=== PATIENT | male | born 1995 | race African-American/Black ===

== ENCOUNTER 2021-10-07 10:19 | Emergency (ER) | payer OTHER ==
[~2021-10-07] VITALS: Ht 190.5 cm; Wt 113.4 kg
[2021-10-07] MEDS ORDERED: LORAZEPAM INJ 2 MG/ML VIAL IV ONE (11:00)
[2021-10-07] MEDS ORDERED: HALOPERIDOL LACTATE INJ 5 MG/ML VIAL IV ONE (11:00)
[2021-10-07] MEDS ORDERED: diphenhydrAMINE HCL 50 MG/ML VIAL IV ONE (11:00)
[2021-10-07] MEDS ORDERED: HALOPERIDOL LACTATE INJ 5 MG/ML VIAL IM ONE (11:00)
[2021-10-07] MEDS ORDERED: IV NS 0.9% 1,000 ML IV ONE (11:00)
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
[2021-10-07] MEDS ORDERED: HALOPERIDOL LACTATE INJ 5 MG/ML VIAL ONE (11:09)
[2021-10-07] MEDS ORDERED: diphenhydrAMINE HCL 50 MG/ML VIAL ONE (11:09)
[2021-10-07] MEDS ORDERED: LORAZEPAM INJ 2 MG/ML VIAL ONE ×2 (11:10→15:15)
--- NOTE | 2021-10-07 11:45 | NUR ---
PT REFUSING BLOOD DRAW, ACTIVELY PSYCHOTIC. ON 5150 HOLD. MEDICATED ORDERED. SEE EMAR.
--- NOTE | 2021-10-07 11:59 | NUR ---
BLOOD DRAWN AND SENT TO LAB
[2021-10-07] MEDS ORDERED: LORAZEPAM INJ 2 MG/ML VIAL IM ONE (12:00)
[2021-10-07] MEDS ORDERED: diphenhydrAMINE HCL 50 MG/ML VIAL IM ONE (12:00)
--- NOTE | 2021-10-07 12:11 | NUR ---
SWAB FOR COVID19 SENT TO LAB
--- NOTE | 2021-10-07 12:11 | NUR ---
PATIENT INTENTIONALLY PULLED OUT HIS IV CANULA
[2021-10-07 12:12] LABS: BASOPHILS % (AUTO) 0.2 % (0.0-2.0); EOSINOPHILS % (AUTO) 0.8 % (0.0-6.0); HEMATOCRIT 52 % (39-51); HEMOGLOBIN 17.4 g/dL (13.5-17.5); LYMPHOCYTES # (AUTO) 1.1 K/uL (0.8-4.8); LYMPHOCYTES % (AUTO) 8.9 % (20.0-44.0); MEAN CORPUSCULAR HGB CONC 34 g/dl (31.0-36.0); MEAN CORPUSCULAR VOLUME 87 fL (80-96); MONOCYTES # (AUTO) 0.9 K/uL (0.1-1.30); MONOCYTES % (AUTO) 7.2 % (2.0-12.0); NEUTROPHILS # (AUTO) 10.6 K/uL (1.8-8.9); NEUTROPHILS % (AUTO) 82.9 % (43.0-81.0); PLATELET COUNT (AUTO) 194 K/uL (150-450); RED BLOOD CELL COUNT(AUTO) 5.99 MIL/uL (4.5-6.0); WHITE BLOOD COUNT (AUTO) 12.8 K/uL (4.3-11.0)
[2021-10-07 12:42] LABS: ALANINE AMINOTRANSFERASE 51 U/L (12-78); ALCOHOL, BLOOD < 3 mg/dL (0-0); ALKALINE PHOSPHATASE 96 U/L (46-116); ASPARTATE AMINOTRANSFERASE 29 U/L (15-37); BILIRUBIN,DIRECT 0.1 mg/dL (0.0-0.2); BILIRUBIN,TOTAL 0.4 mg/dL (0.2-1.0); CALCIUM, SERUM 9.6 mg/dL (8.5-10.1); CARBON DIOXIDE 26 mmol/L (21-32); CHLORIDE 103 mmol/L (98-107); CREATININE 1.4 mg/dL (0.6-1.3); GLUCOSE 137 mg/dL (74-106); POTASSIUM 3.8 mmol/L (3.5-5.1); SODIUM SERUM 141 mmol/L (136-145); TOTAL PROTEIN, SERUM 9.6 g/dL (6.4-8.2); UREA NITROGEN, BLOOD 14 mg/dL (7-18)
[2021-10-07 12:45] LABS: ACETAMINOPHEN 0 ug/ml (10-30)
[2021-10-07 12:54] LABS: BILIRUBIN,URINE SMALL (NEGATIVE); COLOR,URINE DARK YELLOW (YELLOW); LEUKOCYTE ESTERASE ,URINE NEGATIVE (NEGATIVE); NITRITE, URINE NEGATIVE (NEGATIVE); PROTEIN,URINE >=300 mg/dl (NEGATIVE); UGLUCOSE NEGATIVE (NEGATIVE)
[2021-10-07 13:46] LABS: BACTERIA,URINE Few /HPF (None Seen); CALCIUM OXALATE CRYSTALS,UR Moderate /HPF (None Seen); MUCUS,URINE Moderate /LPF (None Seen); SQUAMOUS EPITHELIAL CELL,UR Few /HPF (None Seen); WBC,URINE NONE SEEN /HPF (0-3)
--- NOTE | 2021-10-07 16:00 | NUR ---
PATIENT IS ASLEEP AT MOMENT
--- NOTE | 2021-10-07 23:07 | NUR ---
CALLED [facility] TO EVALUATE THE PT
--- NOTE | 2021-10-08 02:09 | NUR ---
Nguyen LEAL at bed side to evaluate the patient
--- NOTE | 2021-10-08 02:26 | NUR ---
PATIENT IS CLEAR FOR DISCHARGE PER WEN AND DR SRINIVASAN.
--- NOTE | 2021-10-08 02:38 | NUR ---
[facility] [place]
[2021-10-08 02:40] VITALS: BP 131/60
== END 2021-10-08 02:40 | disposition home or self-care (01) ==
LOC: ER 10:21
DX: F23 Brief psychotic disorder (principal); R45.1 Restlessness and agitation; S01.112A Laceration without foreign body of left eyelid and periocular area, initial encounter; Y35.93XA Legal intervention, means unspecified, suspect injured, initial encounter; Y92.89 Other specified places as the place of occurrence of the external cause; Z20.822 Contact with and (suspected) exposure to COVID-19
CPT/HCPCS: 99291; 96372 ×2; 70450; 85025; 80048; 80076; 81001; 36415; 87426; 80143; 80320; 80307; J2060; J1200; J1630; C9803; G0480